=== PATIENT | female | born 1990 | race Caucasian/White ===

== ENCOUNTER 2016-12-24 12:34 | Emergency (ER) | payer BC, OTHER ==
[~2016-12-24] VITALS: Ht 170.2 cm; Wt 72.8 kg
[~2016-12-24 12:34] MED LIST: ALBUTEROL SULF8.5 GM IH; ANUSOL-HC21 GM PR; Aspirin Chewable PO; CITALOPRAM HBR10 MG PO; COLACE100 MG PO; CYCLOBENZAPRINE5 MG PO; ENDOCET 5-3251 EACH PO; FLONASE16 G1 BOTH NARES; GABAPENTIN100 MG PO; MOTRIN800 MG PO; MUCINEX D ER T1 EACH PO; NATALCARE RX1 TABLE1 PO; OXYCODONE HCL10 MG PO; PREDNISONE20 MG PO; SAVELLA12.5 MG PO; TRAMADOL HCL50 MG PO; ZOFRAN ODT4 MG PO
[2016-12-24 12:54] VITALS: BP 114/79
[2016-12-24] MEDS ORDERED: MOTRIN800 MG PO (13:14)
[2016-12-24] MEDS ORDERED: AUGMENTIN875 MG PO (13:14)
[2016-12-24] MEDS ORDERED: DULOXETINE HCL30 MG PO (13:22)
[2016-12-24] MEDS ORDERED: LYRICA75 MG PO (13:22)
== END 2016-12-24 13:43 | disposition home or self-care (01) ==
LOC: EME 12:34 → RME 12:34
DX: H72.92 Unspecified perforation of tympanic membrane, left ear (principal); H66.92 Otitis media, unspecified, left ear; H91.3 Deaf nonspeaking, not elsewhere classified; Z97.4 Presence of external hearing-aid
CPT/HCPCS: 99281; 99284

== ENCOUNTER 2017-12-13 19:05 | Emergency (ER) | payer BC, OTHER ==
[~2017-12-13] VITALS: Ht 170.2 cm; Wt 67.7 kg
[~2017-12-13 19:05] MED LIST changes: +AUGMENTIN875 MG PO; +DULOXETINE HCL30 MG PO; +LYRICA75 MG PO
[2017-12-13 19:12] VITALS: BP 127/82
== END 2017-12-13 21:56 | disposition left against medical advice (07) ==
LOC: EME 19:05
DX: R25.2 Cramp and spasm (principal); M79.89 Other specified soft tissue disorders; Z53.21 Procedure and treatment not carried out due to patient leaving prior to being seen by health care provider
CPT/HCPCS: 80048; 82550; 83735; 85027